=== PATIENT | female | born 1980 | race Caucasian/White ===

== ENCOUNTER 2019-11-14 07:18 | Emergency (ER) | payer BC, SELFPAY ==
[2019-11-14] VITALS (15 sets, daily range): BP systolic 103–118; BP diastolic 67–77; PULSE 45–81; RESP 8–18; TEMP 36.3–37; O2SAT 96–100
--- NOTE | 2019-11-14 07:37 | ED.GENADUL_ITS ---
Discharge Plan Disposition Patient Disposition: [facility] Condition: Serious Discharge Details Chief Complaint: FlankPain Clinical Impression: Pelvic mass Primary Care Provider: Briseida Mckenna ED Provider: Rochelle Faye Home Meds and New Rx's Prescriptions: No Action norgestimate-ethinyl estradiol [Ortho Tri-Cyclen (28)] 0.18/0.215/0.25 mg-35 mcg (28) tablet 1 tab PO DAILY Qty: 84 RF: 4 Discharge Data Discharge Date/Time-TO BE ENTERED AT DEPARTURE: 11/14/19 17:13 Medical Decision Making <Blake Hall MD - Last Filed: 11/14/19 07:41> 39 yo female who denies chronic medical problems, no smoking or drug use and has beer on weekends only comes in with cc of acute onset left lower back radiating to the groin that started acutely at 6am along with nausea. Has never had pain like this in the past and denies fevers, dysuria or hematuria. She has a soft nontedner abdomen on exam and no cva tenderness. Given the acute onset of her pain and location suspect kidney stone. Will obtain labs and also renal colic ct. Given reassuring abdominal exam doubt surgical pathology such as appendicitis or sbo among other pathology pt signed out to oncoming provider pending lab and imaging results Differential Diagnosis Differential Diagnosis: pyelo, kidney stone, diverticulitis <FLORY Burk - Last Filed: 11/15/19 16:08> I assumed care of this 39-year-old female at shift change at approximately 8 AM on 11-14-2019. She comes into the ER today reporting left lower quadrant and left flank pain that began abruptly around 6:00 this morning. Associate with nausea but no vomiting. Patient reports a family history of bladder cancer. She denies bad food exposure or recent illness-trauma. She was asymptomatic last night. On examination she appears uncomfortable. Head atraumatic, normocephalic. Moist mucous membranes. Heart, sinus bradycardia, rate in the 50s. Lungs clear to auscultation. Abdomen with diffuse discomfort along the left flank and left lower quadrant, associated with mild guarding but no rigidity or rebound. There does appear to be some fullness in the suprapubic region. Bowel sounds are equal throughout. Back unremarkable. Patient already received Toradol, antiemetic, fluids. Will give 2 mg IV morphine now. Laboratory does reveal a white blood cell count of 5.64 hemoglobin 12.2 hematocrit 36.8, platelet count 216. Electrolytes reveal a potassium of 3.4. Glucose 143, alk phosphatase 37. Urinalysis reveals greater than 1.030 specific gravity and 100 mg per DL urine protein. 3-5 white cells in the urine negative for red blood cells, negative for nitrates or leukoesterase. Many epithelial cells, likely contamination. Patient returned from CT, initially had good resolution of her discomfort with the morphine however now pain and nausea is returning. Additional 2 mg IV morphine and 4 [address]. CT initially done without contrast. I spoke with the radiologist. There appears to be a complex cystic lesion in the pelvis which appears to be separate from the uterus. It is midline and anterior from the bladder. Difficult to give additional information given the lack of contrast. Recommends both oral and IV contrast abdomen CT and pelvis. Discussed work-up laboratory values and CT imaging with patient. She is agreeable for CT imaging of abdomen pelvis with IV and oral contrast. She reports increased abdominal discomfort. Patient given 1 mg IV Dilaudid. Patient is tolerating the oral contrast, no vomiting. She does report return of her abdominal discomfort. Given additional 1 mg IV Dilaudid and will now give additional IV fluid. Heart rate remains in the 50s. Will add on coags as this mass very well be surgical in nature. Patient required another dose of IV Dilaudid. CT with oral and IV contrast reveals a 10 cm heterogeneous mass in the anterior pelvis. Differential considerations include ovarian lesion please correlate with patient's clinical history. Periportal edema in the liver, no evidence of hepatic mass. Small amount of abdominal pelvis ascites. Duplicated inferior vena cava. I discussed these findings with the patient and placed a call out to Dr. Rios who is on- call for [employer]. She did evaluate the patient here in the ER and requested ultrasound to further evaluate for flow to the ovary-mass. Patient went ultrasound and upon return reports that her pain has actually resolved completely. Ultrasound results reveal a 10 cm heterogeneous mass in the right adnexa. Consideration should include ovarian etiology such as neoplasm, endometrioma, infection, or torsion. Other pelvic masses cannot be excluded. Dr. Rios back down to the ER for evaluation. Please see her note. She discussed options with the patient. Can certainly have surgery here however if the mass is malignant would likely require a second surgery at [facility]. Given this the patient would elect to hopefully only have one surgery and is agreeable to transfer to [facility]. Dr. Rios is reaching out to the oncology [facility] [facility] team at [facility] to arrange transportation. Medical Records Medical records reviewed: Yes I reviewed the patient's medical records. <FLORY Whaley - Last Filed: 11/14/19 19:59> Care transition myself from Collins Rangel PA-C. Disposition is made with plan for patient be transferred to [facility] for surgical intervention. Patient has been evaluated by Dr. Chun. Please see initial notes are regarding patient's history, exam and evaluation. Plan is for patient to be transferred to [facility] pending accepting physician, for surgical intervention of pelvic mass. [facility] called back, attending physician spoke with Dr. Chun and Dr. Shanique Welch agrees to be accepting physician at [facility]. Patient transferred down via EMS ER to ER transfer. I discussed plan with the patient. She is resting comfortably prior to transfer. All of her questions and concerns were addressed. HPI <Blake Hall MD - Last Filed: 11/14/19 07:41> General Mode of arrival: ambulatory . Date/Time Provider Initiated Documentation: 11/14/19 07:21 . Limitations to Documentation: no limitations . Information obtained by: patient . History of Present Illness 39 year old F presents to the emergency department with the chief complaint of left flank pain, described as moderate, Patient started experiencing this hour(s) (1) and it has been constant. No relieving factors improve symptom(s), No exacerbating factors reported . Patient did receive the following treatments prior to arrival, none Related Data Home Medications Medication Instructions Recorded Confirmed norgestimate-ethinyl estradiol 1 tab PO DAILY #84 tab 09/09/19 11/14/19 Previous Rx's Medication Instructions Recorded norgestimate-ethinyl estradiol 1 tab PO DAILY #84 tab 09/09/19 Allergies Allergy/AdvReac Type Severity Reaction Status Date / Time No Known Allergies Allergy Unverified 11/14/19 07:47 General Stated Complaint: FlankPain OMARI: 3 Review of Systems <Blake Hall MD - Last Filed: 11/14/19 07:41> All systems reviewed & are unremarkable except as noted in HPI and below Constitutional Constitutional: Denies chills, Denies fever(s) and Denies weakness ENT Ears, Nose, Mouth, and Throat: Denies change in voice Cardiovascular Cardiovascular: Denies chest pain and Denies dyspnea Respiratory Respiratory: Denies cough and Denies dyspnea Genitourinary Genitourinary: Denies dysuria Musculoskeletal Musculoskeletal: Denies joint swelling Neurologic Neurologic: Denies weakness Psychiatric Psychiatric: Denies depression PFSH <Blake Hall MD - Last Filed: 11/14/19 07:41> Medical History (Updated 11/14/19 @ 15:03 by Teresa Rios DO) Hyperthyroidism during (Resolved ~2013) Migraine headache with aura (Resolved) Oral contraceptive pill surveillance (Inactive) Pelvic pain (Acute) Surgical History S/P right knee arthroscopy (Inactive 08/29/16) Right knee arthroscopic medial chondroplasty with resection of lateral plica with Dr. Omer Family History Mother No problems noted. Father Essential hypertension Hyperlipidemia Prostate cancer Sister Hypothyroidism Sister Hypothyroidism Son No problems noted. Daughter No problems noted. Maternal Grandfather , at 79 Heart disease Maternal Grandmother , at 89 Alcohol abuse Breast cancer Paternal Grandfather , at 94 Skin cancer Paternal Grandmother , at 78 Bladder cancer Essential hypertension Stroke Social History Smoking/Tobacco Use Status: Never Second Hand Exposure: No Alcohol Intake: current Alcohol Intake frequency: a few times a week Alcohol type: beer Drug use: Never Substance use type: does not use Caregiver/Support person: No Household members: spouse and children Housing: house Communication Needs: None Do you need help understanding health information?: Never Pets and animals: No Sexually active: Yes Do you think of yourself as: straight/heterosexual Current gender identity: female What is your relationship status?: How often do you talk on the phone with friends or family?: twice per week How often do you get together with friends or relatives?: twice per week How often do you attend alevism or scientologist services?: 1-3 times per year Do you belong to any clubs or organized social groups?: yes Panel score (0-1 are the most socially isolated patients): 3 What type of physical activity do you participate in: other Details: basketball, skiing and running Duration: 45-60 minutes/day Frequency: 5-6 times per week Laine/Mormonism: None Special laine needs: No Seatbelt use: always Helmet use: Yes Helmet use: always Drive intox or ride w/intox mechanic driver: No Do you feel safe at home: Yes Do you feel safe in your relationship?: Yes History History 2 Para 2 Hx # Term Pregnancies Multiple births Hx # Pregnancies Ectopic pregnancies AB induced Hx Number of Living Children 2 AB spontaneous Exam <Blake Hall MD - Last Filed: 11/14/19 07:41> Const General: no acute distress Orientation: alert HENMT Head: normal to inspection Ears: external ears normal General nose exam: external nose normal Mouth: moist mucous membranes Eyes General: appearance normal, both eyes and all related structures Neck Neck: normal visual inspection Resp Effort & Inspection: normal respiratory effort and able to speak in complete sentences Cardio Rate: regular rate GI Palpation: soft Skin General skin exam: no rashes or lesions noted Neuro General: patient alert and patient oriented x3 Extrem General: normal to inspection Psych Mental Status: mental status grossly normal Course <Blake Hall MD - Last Filed: 11/14/19 07:41> Vital Signs Vital signs: Vital Signs Temperature 36.3 C L 11/14/19 07:26 Pulse 53 L 11/14/19 07:26 Blood Pressure 104/67 11/14/19 07:26 Pulse Oximetry 96 11/14/19 07:26 Temperature 36.3 C L 11/14/19 07:26 Temperature Source Temporal Artery Scan 11/14/19 07:26 Pulse 53 L 11/14/19 07:26 Blood Pressure 104/67 11/14/19 07:26 Blood Pressure Position Sitting 11/14/19 07:26 Pulse Oximetry 96 11/14/19 07:26 Oxygen Delivery Method Room Air 11/14/19 07:26 Oxygen Flow Rate 0 11/14/19 07:26 Pain Level 7 11/14/19 07:26 Lab/Test Results Lab/Test Results: POC- Test(urine) Negative Sign Out <Blake Hall MD - Last Filed: 11/14/19 07:41> Sign Out Data: Sign Out Comment: left flank pain, follow up labs and imaging results Last updated by Blake Hall MD at 11/14/19 07:42 Sign Out Comment: Patient with pelvic mass via CT imaging and ultrasound. Dr. Rios has consulted, please see her note. Plan is to transfer to [facility] oncology [employer] team however they have not called back. Pending their consultation and acceptance of transfer of care. Last updated by River Rangel PA at 11/14/19 15:56
[2019-11-14] MEDS: Ketorolac 15 MG/ML VIAL IVP (07:41)
[2019-11-14] MEDS: Ondansetron 4 MG/2 ML VIAL IVP ×3 (07:41→15:35)
[2019-11-14] MEDS: Normal Saline 1,000 ML 1000 ML IV ×2 (07:42→10:47)
[2019-11-14] MEDS: Normal Saline Flush 10 ML SYR IVP ×6 (07:43→12:30)
[2019-11-14 07:48] LABS: Bilirubin Negative (Negative); Blood Negative (Negative); Clarity Clear (Clear); Glucose Negative (Negative); Ketones Negative (Negative); Leukocyte Esterase Negative (Negative); Nitrite Negative (Negative); Specific Gravity >= 1.030 (1.005-1.025); Urobilinogen 0.2 EU/dL (Up TO 0.2); pH 5.5 (5-8)
[2019-11-14 07:55] LABS: Abs Immature Grans 0.01 k/cumm (0.0-0.09); Absolute Basophil Count 0.02 k/cumm (0.0-0.2); Absolute Eosinophil Count 0.13 k/cumm (0.0-0.7); Absolute Lymphocyte Count 1.93 k/cumm (1.2-3.4); Absolute Neutrophil Count 3.25 k/cumm (1.2-6.7); Basophils % 0.4; Eosinophils % 2.3; HCT 36.8 % (36.0-46.0); HGB 12.2 g/dL (12.0-15.5); Immature Grans % 0.2 %; Lymphocytes % 34.2; Mean Corp. HGB Concentration 33.2 g/dL (32.0-36.0); Mean Corpuscular Hemoglobin 31.9 pg (27.0-33.0); Mean Corpuscular Volume 96.3 fL (80-95); Mean Platelet Volume 10.3 fL (8.0-11.0); Monocytes % 5.3; Neutrophils % 57.6; Platelet Count 216 x1000/uL (130-400); RBC 3.82 m/cumm (4.00-5.20); RBC Distribution Width 12.6 % (11.7-14.6); White Blood Cell Count 5.64 k/cumm (4.4-10.8)
[2019-11-14 08:00] LABS: ALT 26 U/L (14-59); AST 26 U/L (15-37); Albumin 3.7 g/dL (3.4-5.0); Alkaline Phosphatase 37 U/L (46-116); Anion Gap 10.2 mmol/L (3-11); BUN 18 mg/dL (7-18); Bilirubin, Total 0.4 mg/dL (0.2-1.0); CO2 24.8 mmol/L (21.0-32.0); CREATININE 0.99 mg/dL (0.55-1.02); Calcium 8.6 mg/dL (8.5-10.1); Chloride 101 mmol/L (98-107); Glucose 141 mg/dL (74-106); Lipase 130 U/L (73-393); Potassium 3.4 mmol/L (3.5-5.1); Sodium 136 mmol/L (136-145); Total Protein 7.2 g/dL (6.4-8.2)
[2019-11-14 08:02] LABS: RBC Negative HPF (0-2)
--- NOTE | 2019-11-14 08:02 | DI.CT_ITS ---
EXAM: CT RENAL COLIC WO CLINICAL HISTORY: left flank pain. TECHNIQUE: Imaging Protocol: Axial computed tomography images with coronal and sagittal reformatted images were created and reviewed. COMPARISON: No exams were available for comparison FINDINGS: ABDOMEN: Lung Bases: Normal where visualized. Liver: Normal density. No measurable mass. Gallbladder and biliary tract: No radiodense calculus or biliary ductal dilation. Pancreas: Normal density, no abnormal calcifications or inflammatory process. Spleen: Normal. Kidneys: Normal size, contour and axis. No radiodense stones or obstructive uropathy. No masses seen. Adrenal glands: No masses seen. Lymph nodes: Within normal limits. Abdominal Aorta: Abdominal portion non-dilated. 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 PELVIS: Bladder: There is an 11 x 9.5 cm complex cystic lesion in the anterior pelvis. It appears anterior t o the uterus. Bowel: No obstruction or bowel wall thickening. No definite evidence of an acute appendicitis. Peritoneal cavity: Trace amount of free fluid in the cul-de-sac. Reproductive organs: Uterus appears unremarkable. Bones: Within normal limits. Soft Tissues: Within normal limits. IMPRESSION: 11 x 9.5 cm complex cystic lesion in the anterior pelvis. Differential considerations include bladde r mass or hemorrhage pelvic mass including an ovarian neoplasm, endometrioma or possible ureter in ma ss such as a fibroid.A CT scan of the abdomen and pelvis with oral and intravenous contrast is recomm ended. Findings were discussed with the emergency department. No evidence of nephrolithiasis or hydronephrosis. RADIATION DOSE DELIVERED: Total DLP DATA REPOSITORY: All CT scans at this facility are submitted to the National Radiology Data Registry (NRDR) Dose Index Registry (DIR) with the [employer] (ACR). RADIATION OPTIMIZATION: All CT scans at this facility use at least one of these dose optimization te chniques: automated exposure control; mA and/or kV adjustment per patient size (includes targeted exa ms where dose is matched to clinical indication); or iterative reconstruction.
[2019-11-14 08:03] LABS: Bacteria Few HPF (Negative); Crystals Negative HPF (Negative); Epithelial Cells Many HPF (Negative); Mucus Moderate (Negative)
[2019-11-14 08:04] LABS: C & S Indicated? No/Sq. Contamination
[2019-11-14] MEDS: Normal Saline 50 ML 200 ML (09:56)
--- NOTE | 2019-11-14 10:00 | DI.CT_ITS ---
EXAM: CT ABDOMEN PELVIS W CLINICAL HISTORY: Cystic structure on CT without contrast. TECHNIQUE: Imaging Protocol: Axial computed tomography images with coronal and sagittal reformatted images were created and reviewed CONTRAST MATERIAL: Intravenous: Omnipaque 350 Contrast volume:100 mL Oral: Yes COMPARISON: CT CT RENAL COLIC WO from 11/14/2019 FINDINGS: ABDOMEN: Lung Bases: Dependent atelectasis. Liver: Periportal edema present. No measurable mass. Portal, Superior Mesenteric, and Splenic Veins: Unremarkable. Gallbladder and Biliary Tract: No radiodense calculus or dilation. Pancreas: Normal density, no abnormal calcifications or inflammatory process. Spleen: Normal. Adrenals: No masses seen. Kidneys: Normal size, contour and axis. No nephrolithiasis. No masses seen. Mild dilatation of the ri ght renal collecting system is noted. This may be secondary to compression by the pelvic mass. Abdominal Aorta: Abdominal portion non-dilated. 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 Bowel: No obstruction or bowel wall thickening. No evidence of an acute appendicitis. Peritoneal Cavity: There is a small amount of pelvic ascites. No pneumoperitoneum is present. Lymph Nodes: Within normal limits. Bones: No acute abnormality. Soft Tissues: Unremarkable. PELVIS: Bladder: Grossly unremarkable. The urinary bladder is compressed by the pelvic mass. Reproductive Organs: The uterus is grossly unremarkable. There is again seen a 10 cm heterogeneous ma ss in the anterior pelvis it lies anterior to the uterus and superior to the urinary bladder. Lymph Nodes: Within normal limits. Bones: Within normal limits. IMPRESSION: 1. 10 cm heterogeneous mass in the anterior pelvis. Differential considerations include ovarian lesio n such as torsion neoplasm or possible endometrioma. Please correlate with patient's clinical history . 2. Periportal edema in the liver. No evidence of a hepatic mass. 3. Small amount of abdominal pelvic ascites. 4. Duplicated inferior vena cava. 5. The findings were discussed with the emergency department on the date of the examination. RADIATION DOSE DELIVERED: Total DLP DATA REPOSITORY: All CT scans at this facility are submitted to the National Radiology Data Registry (NRDR) Dose Index Registry (DIR) with the [employer] (ACR). RADIATION OPTIMIZATION: All CT scans at this facility use at least one of these dose optimization te chniques: automated exposure control; mA and/or kV adjustment per patient size (includes targeted exa ms where dose is matched to clinical indication); or iterative reconstruction.
[2019-11-14] MEDS: HYDROmorphone 2 MG/ML VIAL 1 MG IVP ×3 (10:09→12:30)
[2019-11-14 11:04] LABS: PTT Activated 18.9 sec (21.0-31.4); Prothrombin Time 10.4 sec (9.3-11.0)
[2019-11-14] MEDS: Omnipaque 350 MG/ML 100 ML BTL IV (11:34)
[2019-11-14] MEDS: Normal Saline - Diluent 50 ML VIAL IV (11:37)
--- NOTE | 2019-11-14 12:42 | DI.US_ITS ---
EXAM: US PELVIS TRANSVAGINAL CLINICAL HISTORY: mass on CT, want to evaluate blood flow to ovary. TECHNIQUE: Transabdominal and transvaginal pelvic ultrasound was performed using standard protocol. COMPARISON: CT CT RENAL COLIC WO from 11/14/[address] ABDOMEN PELVIS W from 11/14/2019 FINDINGS: KIDNEYS: Kidneys are symmetric in size. No evidence of renal calculi. No evidence of hydronephrosis. No renal mass or cyst identified. UTERUS: Position: Anteverted. Size: 9.1 x 4.7 x 6.3 cm Endometrium: 0.8 cm. Normal for patient's menstrual status. Myometrium: Unremarkable. Cervix: Unremarkable. OVARIES: Right: There is a 10 cm mass in the right adnexal region. No definite internal blood flow seen sonog raphically. A distinct separate ovary is not visualized. This corresponds to the finding on the CT scans. Left: 3.1 x 1.4 x 1.3 cm Cyst or mass: Small follicular cysts. DOPPLER: Color: Blood flow is seen to the left ovary. No hyperemia. Duplex: Normal left ovarian arterial waveform visualized. CUL-DE-SAC: Free fluid: Small amount of free pelvic fluid. Other: None. IMPRESSION: 1. Normal sonographic appearance of the kidneys. 2. Normal-appearing uterus with endometrial stripe within normal limits. 3. Normal appearing left ovary. 4. 10 cm heterogeneous mass in the right adnexa. Consideration should include ovarian etiology such is neoplasm, endometrioma, infection, or torsion. Other pelvic masses cannot be excluded. 5. The findings were discussed with the patient's primary care team on the date of the examination. DATA REPOSITORY:
--- NOTE | 2019-11-14 14:55 | W.GYNCONSULT ---
Date of service: 11/14/19 Time of Service: 14:55 Assessment and Plan Assessment and plan (1) Pelvic mass: Status: Acute Assessment and plan: Due to the size, comp laxity, and acute pain associated with this pelvic mass, options were discussed with the patient which included surgical intervention here at [facility] with operative laparoscopy versus laparotomy. Alternative option would be consultation and transfer to [facility] for gynecologic oncology services. Due to the fact that the etiology of her pelvic mass is somewhat unclear with torsion as a possibility versus underlying ovarian neoplasm decision was made for transfer of care to [facility] for gynecologic oncology services if needed. The risks and benefits of surgery including injury to surrounding organs bowel bladder blood vessels risk of anesthesia potential postoperative complications including thrombotic events were all explained to the patient. If surgery was undertaken here, and underlying malignancy noted with pathology, second surgical procedure would be necessary. Patient wishes to avoid this at all cost, and could potentially benefit from a robotic assisted procedure. (2) Pelvic pain: Status: Acute History of Present Illness History of Present Illness Chief Complaint: Good onset left lower quadrant pain Consults Consult date: 11/14/19 Review of Systems Narrative: Patient was seen in the emergency department this morning with acute onset of left lower quadrant pain. She states that it was described as cramping, labor-like pains which radiated from her abdomen to her lower back. She has never had pain to this extent in the past. She denies nausea or vomiting, fever or chills. She was concerned that she was passing a kidney stone, so was brought to the emergency department by her . Constitutional Constitutional: Denies chills, Denies fever(s), Denies increased appetite, Denies weakness and Denies weight loss Cardiovascular Cardiovascular: Reports system reviewed and no additional complaints, except as documented Respiratory Respiratory: Reports system reviewed and no additional complaints, except as documented Gastrointestinal Gastrointestinal: Reports abdominal pain, Reports cramping, Reports early satiety, Denies diarrhea, Denies loose stools and Denies nausea Genitourinary Genitourinary: Denies abnormal menses and Denies metrorrhagia Neurologic Neurologic: Reports system reviewed and no additional complaints, except as documented and Denies weakness Psychiatric Psychiatric: Reports system reviewed and no additional complaints, except as documented [facility] Medical History Hyperthyroidism during (Resolved ~2013) Migraine headache with aura (Resolved) Oral contraceptive pill surveillance (Inactive) Surgical History S/P right knee arthroscopy (Inactive 08/29/16) Right knee arthroscopic medial chondroplasty with resection of lateral plica with Dr. Omer Family History Mother No problems noted. Father Essential hypertension Hyperlipidemia Prostate cancer Sister Hypothyroidism Sister Hypothyroidism Son No problems noted. Daughter No problems noted. Maternal Grandfather , at 79 Heart disease Maternal Grandmother , at 89 Alcohol abuse Breast cancer Paternal Grandfather , at 94 Skin cancer Paternal Grandmother , at 78 Bladder cancer Essential hypertension Stroke Social History Smoking/Tobacco Use Status: Never Second Hand Exposure: No Alcohol Intake: current Alcohol Intake frequency: a few times a week Alcohol type: beer Drug use: Never Substance use type: does not use Caregiver/Support person: No Household members: spouse and children Housing: house Communication Needs: None Do you need help understanding health information?: Never Pets and animals: No Sexually active: Yes Do you think of yourself as: straight/heterosexual Current gender identity: female What is your relationship status?: How often do you talk on the phone with friends or family?: twice per week How often do you get together with friends or relatives?: twice per week How often do you attend yazdanism or christianity services?: 1-3 times per year Do you belong to any clubs or organized social groups?: yes Panel score (0-1 are the most socially isolated patients): 3 What type of physical activity do you participate in: other Details: basketball, skiing and running Duration: 45-60 minutes/day Frequency: 5-6 times per week Laine/Faith: None Special laine needs: No Seatbelt use: always Helmet use: Yes Helmet use: always 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 She had undergone imaging studies including CT scan of the abdomen and pelvis which revealed a complex pelvic mass measuring approximately 10 x 13 cm. Subsequent imaging with pelvic ultrasound was performed to evaluate the possibility of ovarian torsion. Left ovary was identified with good flow and normal size. Right ovary appeared cystic however associated was a large 10 to 13 cm complex ovarian mass. Flow was minimal. There was noted to be a small amount of free pelvic fluid. 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 After multiple doses of pain medication her pain did somewhat improve. On examination she appears alert and cooperative and in a moderate amount of distress due to pelvic pain. Const General: cooperative, healthy appearing, acute distress and well hydrated Nutritional Appearance: well nourished and thin Orientation: alert and oriented x3 HENMT Head: normal to inspection Eyes General: appearance normal, both eyes and all related structures Neck Neck: normal visual inspection Chest Chest: normal inspection of the chest Resp Effort & Inspection: normal respiratory effort and no stridor Auscultation: clear to auscultation bilaterally, no rales, no rhonchi and no wheezes Cardio Jugular venous pressure: no JVD Palpation: normal PMI Rate: regular rate Rhythm: regular rhythm Heart Sounds: S1 normal, S2 normal and no murmurs GI Inspection: normal to inspection Palpation: guarding, no pulsatile masses and tender Auscultation: normal bowel sounds Other: Mass noted, filling the pelvis extending to the umbilicus Skin General skin exam: no rashes or lesions noted Neuro General: patient alert, patient awake and patient oriented x3 Psych Appearance: grossly normal Mental Status: mental status grossly normal Speech and Movement: speech and movement normal Results Last Vital Signs Temp 97.3 F L 11/14/19 07:26 Pulse 50 L 11/14/19 11:31 Resp 13 11/14/19 11:40 BP 116/77 11/14/19 11:31 Pulse Ox 100 11/14/19 11:40 Labs Result diagrams: 11/14/19 07:40 11/14/19 07:40 Labs: Laboratory Results - last 24 hr 11/14/19 11/14/19 11/14/19 07:26 07:40 07:40 WBC 5.64 RBC 3.82 L Hgb 12.2 Hct 36.8 MCV 96.3 H MCH 31.9 MCHC 33.2 RDW 12.6 Plt Count 216 MPV 10.3 Immature Gran % 0.2 Neutrophils % 57.6 Lymphocytes % 34.2 Monocytes % 5.3 Eosinophils % 2.3 Basophils % 0.4 Absolute Neutrophils 3.25 Absolute Lymphocytes 1.93 Absolute Monocytes 0.30 Absolute Eosinophils 0.13 Absolute Basophils 0.02 PT INR APTT Sodium 136 Potassium 3.4 L Chloride 101 Carbon Dioxide 24.8 Anion Gap 10.2 BUN 18 Creatinine 0.99 Estimated GFR/1.73 m2 >= 60.00 Glucose 141 H Calcium 8.6 Total Bilirubin 0.4 AST 26 ALT 26 Alkaline Phosphatase 37 L Total Protein 7.2 Albumin 3.7 Lipase 130 Urine Color Yellow Urine Clarity Clear Urine pH 5.5 Ur Specific [place] >= 1.030 H Urine Protein 100 H Urine Ketones Negative Urine Blood Negative Urine Nitrite Negative Urine Bilirubin Negative Urine Urobilinogen 0.2 Ur Leukocyte Esterase Negative Urine RBC Negative Urine WBC 3-5 Ur Epithelial Cells Many Urine Crystals Negative Urine Bacteria Few Urine Mucus Moderate Ur Culture Indicated? No/sq. contamination Urine Glucose Negative 11/14/19 07:40 WBC RBC Hgb Hct MCV MCH MCHC RDW Plt Count MPV Immature Gran % Neutrophils % Lymphocytes % Monocytes % Eosinophils % Basophils % Absolute Neutrophils Absolute Lymphocytes Absolute Monocytes Absolute Eosinophils Absolute Basophils PT 10.4 INR 1.0 APTT 18.9 L Sodium Potassium Chloride Carbon Dioxide Anion Gap BUN Creatinine Estimated GFR/1.73 m2 Glucose Calcium Total Bilirubin AST ALT Alkaline Phosphatase Total Protein Albumin Lipase Urine Color Urine Clarity Urine pH Ur Specific [place] Urine Protein Urine Ketones Urine Blood Urine Nitrite Urine Bilirubin Urine Urobilinogen Ur Leukocyte Esterase Urine RBC Urine WBC Ur Epithelial Cells Urine Crystals Urine Bacteria Urine Mucus Ur Culture Indicated? Urine Glucose
== END 2019-11-14 17:13 | disposition short-term general hospital (02) ==
PROVIDERS: Emergency Medicine; Physician Assistant; Emergency Provider Physician Assistant; PCP Nurse Practitioner Family
DX: R19.04 Left lower quadrant abdominal swelling, mass and lump (principal); R11.0 Nausea; R18.8 Other ascites
CPT/HCPCS: 36415; 80053; 83690; 96361; 96374; 96375; 96376; 99253; 99285; 74176; 74177; 76830; 76856; 81003; 81015; 85025; 85610; 85730; J1885; J2405; J3490

== ENCOUNTER 2020-07-12 03:04 | Outpatient (CLI) | payer BC, SELFPAY ==
[2020-07-12 15:54] LABS: BUN 13 mg/dL (7-18); CREATININE 0.94 mg/dL (0.55-1.02); Calcium 9.4 mg/dL (8.5-10.1); Calculated LDL 117 mg/dL (<100); Chloride 99 mmol/L (98-107); Cholesterol 218 mg/dL (<200); Glucose 116 mg/dL (74-106); HDL Cholesterol 92 mg/dL (40-60); Potassium 4.5 mmol/L (3.5-5.1); Sodium 134 mmol/L (136-145); TSH 3.58 uIU/mL (0.36-3.74); Triglyceride 47 mg/dL (<150)
[2020-07-12 16:16] LABS: FREE T4 0.91 ng/dL (0.76-1.46)
== END 2020-07-12 03:24 ==
PROVIDERS: PCP Nurse Practitioner Family; Visit Provider Nurse Practitioner Family
DX: Z00.00 Encounter for general adult medical examination without abnormal findings (principal); Z13.220 Encounter for screening for lipoid disorders; Z86.39 Personal history of other endocrine, nutritional and metabolic disease
CPT/HCPCS: 36415; 80048; 80061; 84439; 84443

== ENCOUNTER 2020-12-11 00:52 | Outpatient (CLI) | payer BC, SELFPAY ==
--- NOTE | 2020-12-11 13:55 | DI.RAD_ITS ---
Exam(s) XR KNEE RT 3V AP,LAT,HARPAL EXAM: XR KNEE RT 3V AP,LAT,HARPAL CLINICAL HISTORY: right posterior knee pain,M25.561. TECHNIQUE: 2D digital imaging was performed. COMPARISON: No exams were available for comparison FINDINGS: BONES: No acute fracture is present. No bony destructive lesion is seen. JOINTS: The knee is normally aligned. There is a small joint effusion. SOFT TISSUE: Normal. IMPRESSION: Small joint effusion. DATA REPOSITORY: RADIATION DOSE DELIVERED:
== END 2020-12-11 01:12 ==
PROVIDERS: PCP Nurse Practitioner Family; Visit Provider Nurse Practitioner Family
DX: M25.461 Effusion, right knee (principal)
CPT/HCPCS: 73562

== ENCOUNTER 2021-10-14 01:22 | Outpatient (CLI) | payer BC, SELFPAY ==
--- NOTE | 2021-10-14 07:00 | DI.US_ITS ---
Exam(s) US PELVIS TRANSVAGINAL EXAM: US PELVIS TRANSVAGINAL CLINICAL HISTORY: r/o uterine fibroid,H/O UTERINE FIBROID,Z86.018 TECHNIQUE: Transabdominal and transvaginal imaging was performed using standard protocol. COMPARISON: CT CT ABDOMEN PELVIS W from 11/14/[address] RENAL COLIC WO from 11/14/2019 US US PELVIS TRANSVAGINAL from 11/14/2019 FINDINGS: KIDNEYS: Kidneys are symmetric in size. No evidence of renal calculi. No evidence of hydronephrosis. No renal mass or cyst identified. UTERUS: Anteverted. 10.9 x 5.3 x 5.9 cm Endometrium: 9 millimeters. Small amount of fluid or blood, consistent with menstruating status. Myometrium: Unremarkable. No fibroid seen. Cervix: Unremarkable. OVARIES: Right: Cyst or mass: None. Left: Cyst or mass: None. DOPPLER: Color: Symmetric and uniform flow to both ovaries. No hyperemia. Duplex: Normal ovarian arterial waveforms visualized. CUL-DE-SAC: Free fluid: Small amount. IMPRESSION: 1. Normal-appearing uterus with endometrial stripe within normal limits. 2. Unremarkable bilateral ovaries. DATA REPOSITORY:
--- NOTE | 2021-10-14 07:00 | DI.MAMMO_ITS ---
Exam(s) MAMMO SCREENING EXAM: MAMMO SCREENING CLINICAL HISTORY: screening,Z12.39 TECHNIQUE: Mammograms were interpreted according to the usual protocol including computer analysis w [employer] CAD system, tomosynthesis and C-view imaging. COMPARISON: None. Baseline examination. FINDINGS: The breasts are composed of heterogeneously dense fibroglandular densities, Breast Density category C . No suspicious masses or suspicious microcalcifications are seen. No skin thickening or abnormal axillary lymph nodes are seen. IMPRESSION: BI-RADS Category 1, Negative mammogram. Yearly screening mammography is recommended. Breast Density Category C, heterogeneously Dense. The mammogram demonstrates the patient's breast tissue is dense. Dense breast tissue is very common a nd is not abnormal but dense breast tissue can make it harder to find cancer on a mammogram. Also, de nse breast tissue may increase breast cancer risk. This information about the result of the mammogram report was provided to the patient to raise their awareness. Use this report when you speak with the patient about their risks for breast cancer, which includes their family history. At that time, you may recommend additional screening tests (Ultrasound or MRI) as they might be useful based on their r isk. A negative radiographic report should not delay biopsy if a dominant or clinically suspicious mass is present. Up to ten percent of cancers are not identified on mammography. A negative report may reinforce clinical impression. Adenosis and dense breasts may obscure an underlying neoplasm. False positive reports average 6 to 10%.
== END 2021-10-14 01:42 ==
PROVIDERS: PCP Nurse Practitioner Family; Visit Provider Nurse Practitioner Family
DX: Z12.31 Encounter for screening mammogram for malignant neoplasm of breast (principal); Z86.018 Personal history of other benign neoplasm; Z87.42 Personal history of other diseases of the female genital tract
CPT/HCPCS: 77063; 77067; 76830; 76856

== ENCOUNTER 2022-09-01 15:39 | Outpatient (REF) | payer BC, SELFPAY ==
--- NOTE | 2022-09-01 14:00 | PAPFT_PTH ---
PATIENT: Maribel Latham LOC: [facility] U#:[id number] AGE/SX: 42/F ROOM: RE09/01/[address]: ZEV Jaimes : 1980 BED: DIS: 09/01/2022 SPEC #: [id number] RECD: 09/02/22 12:57 STATUS: EDMAR BUCIO #: [id number] MARTHA: 09/01/22 14:[address]: Briseida Mckenna DEPT: [facility] Cytology RECD BY: Ciara Wolf Tissues: 1 - CX/ENDOCX FOR PAP SMEARS Procedures: PAP THIN PREP/UVM Screening HPV DNA PROBE Comments: [id number]
== END 2022-09-01 15:40 | disposition home or self-care (01) ==
LOC: LBN 15:39
PROVIDERS: PCP Nurse Practitioner Family; Visit Provider Nurse Practitioner Family
DX: Z12.4 Encounter for screening for malignant neoplasm of cervix (principal)
CPT/HCPCS: 88142; 87624

== ENCOUNTER 2022-10-06 14:08 | Outpatient (CLI) | payer BC, SELFPAY ==
--- NOTE | 2022-10-06 13:15 | DI.RAD_ITS ---
Exam(s) XR KNEE LT 4V AP,LAT,HARPAL,PAT EXAM: XR KNEE LT 4V AP,LAT,HARPAL,PAT CLINICAL HISTORY: left knee pain, lateral. TECHNIQUE: 2D digital imaging was performed of the left knee. Four images were obtained. Merchant, AP, lateral and PA tunnel views were obtained. COMPARISON: None. FINDINGS: BONES: No acute fracture is present. No bony destructive lesion is seen. JOINTS: The knee is normally aligned. No joint effusion is seen. SOFT TISSUE: Normal. IMPRESSION: Normal radiographs of the left knee. DATA REPOSITORY: RADIATION DOSE DELIVERED:
== END 2022-10-06 14:09 | disposition home or self-care (01) ==
LOC: DIORS 14:08
PROVIDERS: PCP Nurse Practitioner Family; Referring Provider Nurse Practitioner Family; Visit Provider Student in an Organized Health Care Education/Training Program
DX: M25.562 Pain in left knee (principal)
CPT/HCPCS: 73564

== ENCOUNTER 2022-10-20 00:52 | Outpatient (CLI) | payer BC, SELFPAY ==
--- NOTE | 2022-10-20 07:15 | DI.MAMMO_ITS ---
Exam(s) MAMMO SCREENING EXAM: MAMMO SCREENING CLINICAL HISTORY: screening,z12.39 TECHNIQUE: Bilateral full field digital CC and MLO mammographic images were obtained with 3D tomosyn thesis and utilizing computer aided detection (CAD). COMPARISON: Available for comparison. FINDINGS: Masses/Architectural Distortion: None seen. Microcalcifications: No suspicious pleomorphic-type are seen. Skin Thickening/Nipple Retraction: None. IMPRESSION: 1. No significant interval change with no specific features of malignancy noted. 2. Unless there is more urgent need, screening mammography is recommended, as per [employer] guidelines. BI-RADS Category 1 - Negative Breast Density - Category C - Heterogeneously dense Breast density category C or D implies that the patient has dense breast tissue. Dense breast tissue is very common and is not abnormal but dense breast tissue can make it harder to find cancer on a ma mmogram. Also, dense breast tissue may increase their breast cancer risk. This information about the result of the mammogram report was provided to the patient to raise their awareness. Use this report when you speak with the patient about their risks for breast cancer, which includes their family hist ory. At that time, you may recommend for more screening tests (Ultrasound or MRI) as they might be us eful based on their risk. A negative radiographic report should not delay biopsy if a dominant or clinically suspicious mass is present. Up to ten percent of cancers are not identified on mammography. A negative report may reinforce clinical impression. Adenosis and dense breasts may obscure an underlying neoplasm. False positive reports average 6 to 10%. Patient will receive a letter notifying them of these results.
== END 2022-10-20 01:12 ==
PROVIDERS: PCP Nurse Practitioner Family; Visit Provider Nurse Practitioner Family
DX: Z12.31 Encounter for screening mammogram for malignant neoplasm of breast (principal)
CPT/HCPCS: 77063; 77067

== ENCOUNTER 2022-10-29 01:50 | Outpatient (CLI) | payer BC, SELFPAY ==
--- NOTE | 2022-10-29 07:15 | DI.MRI_ITS ---
Exam(s) MR LOWER JOINT LT WO EXAM: MR LOWER JOINT LT WO CLINICAL HISTORY: PAIN,internal derangement lt knee, m23.92. TECHNIQUE: Multiplanar multisequence MRI was performed. COMPARISON: CR XR KNEE LT 4V AP,LAT,HARPAL,PAT from 10/06/2022 FINDINGS: BONES: There is no fracture or contusion pattern. JOINTS: Articular cartilage is unremarkable. There is a small joint effusion. TENDONS: Extensor mechanism: Unremarkable. Medial retinaculum: Unremarkable. Lateral retinaculum: Unremarkable. Popliteus: Unremarkable. MUSCLES: Unremarkable. MENISCI: There is hyperintense signal seen at the root of the medial meniscus suspicious for tear. T here does appear to be hypointense material in the anterior medial aspect of the joint which may repr esent displaced meniscal tissue. The lateral meniscus is unremarkable. SOFT TISSUES: There is a very tiny popliteal cyst. LIGAMENTS: Anterior Cruciate: Unremarkable. Posterior Cruciate: Unremarkable. Medial Collateral:Unremarkable. Lateral Collateral: Unremarkable. OTHER: IMPRESSION: 1. Findings of a tear of the root of the medial meniscus with a question of displaced material anteri madhu. 2. No evidence of a ligament tear. 3. Small joint effusion. DATA REPOSITORY:
== END 2022-10-29 02:10 ==
LOC: DI 01:50
PROVIDERS: PCP Nurse Practitioner Family; Visit Provider Student in an Organized Health Care Education/Training Program
DX: M23.92 Unspecified internal derangement of left knee (principal)
CPT/HCPCS: 73721

== ENCOUNTER 2022-12-18 10:57 | Day surgery (SDC) | payer BC, SELFPAY ==
[2022-12-18] VITALS (8 sets, daily range): BP systolic 100–124; BP diastolic 57–89; PULSE 57–87; RESP 11–18; TEMP 36–36.7; O2SAT 99–100; BMI 22.4
--- NOTE | 2022-12-18 07:36 | ROE_ITS ---
Date of service: 12/18/22 Time of Service: 12:00 Operative Note Operative Note DATE OF PROCEDURE: 12/18/22 PRE-OP DIAGNOSIS: Left knee 1. Medial meniscus root tear POST-OP DIAGNOSIS: same PROCEDURE: Left knee 1. Medial meniscus root repair, CPT #90364 2. Medial femoral condyle abrasion arthroplasty as bone marrow stimulation, CPT #76478 SURGEON: William William FRONT OF HOUSE MANAGER: River Rangel ANESTHESIA TYPE: Local By Surgeon and General LMA/ETT Refer to Anesthesia Record PATHOLOGY: none sent TOURNIQUET TIME: 0 Patient was transported to: PACU Patient's condition: stable Implants: Arthrex 4.75 mm bio composite SwiveLock Indications: Please see complete medical record for details. Findings: Exam under anesthesia: Full range of motion, stable Arthroscopic findings: Complete, radial posterior horn root type medial meniscus tear. Mild medial femoral condyle chondromalacia. Mild intercondylar synovitis. Intact lateral compartment. Intact patellofemoral compartment Procedure Description: In the operating room, general anesthesia was induced. The patient was positioned supine on the operating room table. All bony prominences were well- padded. Preoperative antibiotics were administered. The knee was prepped and draped in the usual sterile fashion. The correct patient, procedure, and side of the procedure were all verified prior to incision. Exam under anesthesia was performed. 10 cc of 0.25% bupivacaine containing epinephrine was infiltrated about the planned anteromedial and anterolateral knee arthroscopy portals. The portals were established and a complete diagnostic arthroscopy was performed with relevant findings detailed above. The mechanical shaver was used to remove some synovitis in the intercondylar and anterior areas likely related to the subacute meniscus tear. The meniscus was probed and inspected. The posterior horn was intact. There was a complete root tear as expected with radial propagation at the posterior horn adjacent to the root. The medial compartment was quite narrow and diminutive relative to the root repair instruments. Using a single skin puncture an 18-gauge needle was used to piecrust the MCL. There was slight increase in a workability of the medial compartment, but the root guide and especially knee scorpion were unlikely to have appropriate fit to the posterior horn working in the valgus stress position. Instead, given the prominence of the medial tibial spine and narrowing of the adjacent posterior aspect of the medial femoral condyle, decision was made to proceed with a small reverse notchplasty. The mechanical shaver was used to abrade and resect a few millimeters of the medial femoral condyle both to improve exposure and serve as bone marrow stimulation for the meniscus repair. After resecting some corresponding medial spine prominence the root repair could be more readily done with the knee in flexion. The mechanical shaver was used and probed to resect just some abnormal frayed tissue at the repair site and abrade tissue only as much necessary to allow for better healing and removal of nonviable tissue. The root repair guide was placed through the anterior medial portal and over the back targeting the radial tear site for root repair. A small pretibial incision was made, root repair guide secured, and the flip cutter appropriately drilled to the root tear, it was flipped to 6 mm and retrograde drilling done for about a 5 mm socket. The knee scorpion was used to then place to many suture tape FiberLink's in the posterior horn aspect adjacent to the tear. These were shuttled through the tibial tunnel with a fiber stick. Provisional reduction confirmed with moderate tension on the sutures. The knee was brought into extension on the operating table, the tibia exposed a centimeter or so from the tunnel site. Sequentially the suture anchor area was prepared using a 2.5 mm drill, punch, and tap. The repair sutures were loaded on the suture anchor, which was deployed with appropriate tension on the repair. Care was taken to ensure the SwiveLock was flush with the tibial cortex to avoid prominence. The repair sutures had excellent fixation strength. The arthroscope was placed back in the knee, the repair had good reduction. There was a nice amount of early bone bleeding from the adjacent medial femoral condyle onto the repair zone. Under direct arthroscopic visualization an 18-gauge needle was passed into the knee from superolateral into the suprapatellar pouch. The knee was copiously irrigated with arthroscopic fluid until there was a clear effluent before being drained of all fluid. The anteromedial and anterolateral portals were closed in 3-0 Monocryl in a buried interrupted fashion. The pretibial incision was deeply closed using 2-0 Monocryl followed by 3-0 Monocryl more superficially. 10 cc of 0.25 bupivacaine with epinephrine was infiltrated about the pretibial incision. Another 10 cc of 0.25% bupivacaine with epinephrine containing 4 mg of morphine was infiltrated into the knee through the previously placed needle. Javi Geei-Strips, and 4 x 4 gauze were applied over the incisions followed by sterile soft roll. The knee was then wrapped gently with an MAYUR comressive bandage. The patient awoke from anesthesia without complication and was transferred to the recovery room in a stable condition.
--- NOTE | 2022-12-18 07:36 | W.PM.DSUDISC ---
Date of service: 12/18/22 Time of Service: 14:55 Discharge Plan Disposition Patient Disposition: Home Condition: Stable Discharge Details Attending Provider: William William Primary Care Provider: Briseida Mckenna Home Meds and New Rx's Prescriptions: New aspirin 81 mg tablet,delayed release (DR/EC) 81 mg PO DAILY 14 Days Qty: 14 0RF naproxen 250 mg tablet 250 - 500 mg PO BID PRN (Reason: Moderate pain) Qty: 40 0RF oxycodone-acetaminophen [Percocet] 5-325 mg tablet 1 - 2 tab PO Q4H MDD 30 mg PRN (Reason: Moderate to severe pain) Qty: 18 0RF Discharge Instructions Additional Instructions: Surgery: Left knee arthroscopy with medial meniscus root repair and intercondylar bone marrow stimulation. Activity: Toe-touch weightbearing with crutches for 6 weeks. Seated/ non-weight bearing flexion 0-90 degrees maximum for 6 weeks. 120 degrees maximum flexion for 8 weeks. Gentle spin/bike after 10 weeks. No weighted deeper flexion (squats, lunges) for 12 weeks. A physical therapy prescription will be sent electronically to start in 2 to 3 weeks. Prescriptions: Aspirin 81 mg take 1 daily to prevent a blood clot for 14 days Naproxen 250 mg take 1-2 every 12 hours with a meal as needed for moderate pain Oxycodone 5 mg take 1-2 every 4-6 hours as needed for severe pain You may use [id number] Tylenol (acetaminophen) as needed for mild pain. These pain medications may be taken all at once or in different combinations as needed. Also, recommend Colace (docusate) as a stool softener as surgery and pain medicine cause constipation. You may try [id number] diphenhydramine (Benadryl) 25-50 mg nightly as a sleep aid Dressings: Leave dressing in place for 3 days. May then remove and leave open to air or cover incisions with Band-Aids. Leave the sticky Steri-Strips in place until they fall off or remove them after you shower. May shower after 5 days. Follow-up: 10-[address] William You may take off the leg compression stockings this evening at home. You may also leave them on a few days longer if you have a history of leg swelling or edema. Let us know right away if you develop any redness, drainage, fevers, chest pain, or trouble breathing. Do not drink alcohol or drive for at least 24 hours after anesthesia. Please call the office during business hours with any questions or concerns. Discharge Orders Discharge Orders: Discharge Order (Routine); Ordered 12/18/22 Ordered By: William William DS: Diagnosis Discharge Diagnosis (1) Acute medial meniscus tear of left knee: Status: Acute
--- NOTE | 2022-12-18 10:05 | W.ANESPRE ---
General Info Date of Service Date Performed: 12/18/22 Height: 5 ft 9 in Weight: 68.946 kg Body Mass Index (BMI): 22.4 Surgical Procedure: Operation Date: 12/18/22 11:55 Proposed Procedure Side Surgeon p Knee Arthroscopy w Medial Meniscus Repair (Root) Left William William MD Meds Allergies and Home Medications Allergies Allergy/AdvReac Type Severity Reaction Status Date / Time No Known Allergies Allergy Unverified 12/18/22 11:40 Home Medication Medication Instructions Recorded Unknown [No Known Home Meds] 08/16/20 Current Visit Medications: Current Medications Generic Name Dose Route Start Last Admin Trade Name Freq PRN Reason Stop Dose Admin Ringer's Solution 1,000 mls @ 30 mls/hr 12/18/22 06:00 IV 12/26/22 23:59 INFUSION SPIKE Cefazolin Sodium/Dextrose 2 gm in 50 mls @ 100 mls/hr 12/18/22 06:00 Ancef Duplex IVPB 12/18/22 23:59 PREOP SPIKE IV Miscellaneous Supplies 1 each 12/18/22 06:00 Iv Access IV 12/26/22 23:59 DIRECTED SPIKE Oxycodone HCl 0 mg 12/18/22 07:33 Oxycodone 5 Mg Tab PO 01/17/23 07:32 Q3H PRN PRN Pain Sodium Chloride 0 ml 12/18/22 06:00 Normal Saline Flush 10 Ml Syr IV 12/26/22 23:59 PRN PRN Sodium Chloride 0 ml 12/18/22 06:00 Normal Saline 10 Ml Vial IJ 12/26/22 23:59 DIRECTED PRN Sterile Water 0 ml 12/18/22 06:00 Water,Injection,Sterile 10 Ml Vial IJ 12/26/22 23:59 DIRECTED PRN PFSH Active Problems Active Problems: Problem Status Onset Code Acute medial meniscus tear of left knee S83.242A Left knee pain M25.562 Left leg pain M79.605 Hyperlipidemia E78.5 Medical History Medical History COVID-19 virus infection (~06/2021) Hyperthyroidism during (~2013) Migraine headache with aura Uterine fibroid S/p removal 2019 Surgical History Surgical History H/O laparoscopy (11/14/19) Laproscopic removal of large complex uterine fibroid S/P right knee arthroscopy (08/29/16) Right knee arthroscopic medial chondroplasty with resection of lateral plica with Dr. Omer Status post bilateral salpingectomy (11/14/19) Tobacco Smoking/Tobacco Use Status: Never Passive smoking exposure: No Second hand exposure: No Alcohol Alcohol Intake: current Alcohol intake frequency: a few times a week Alcohol type: beer Substance Use Substance use: Never Substance use type: does not use Prental History History 2 Para 2 Hx # Term Pregnancies Multiple births Hx # Pregnancies Ectopic pregnancies AB induced Hx Number of Living Children 2 AB spontaneous Vital Signs and Lab Results Lab Results Blood Type / Crossmatch: No Data to Display Complete Blood Count: No Data to Display Complete Metabolic Panel: No Data to Display Liver Function Panel: No Data to Display Coagulation Panel: No Data to Display Cardiac Panel: No Data to Display Arterial Blood Gas: No Data to Display Venous Blood Gas: No Data to Display Pancreas Panel: No Data to Display Thyroid Panel: No Data to Display Infectious Disease: No Data to Display Blood Cultures: No Data to Display Toxicology Panel: No Data to Display Panel: No Data to Display Anesthesia Assessment and Plan Anesthesia History Personal History: No History of Anesthesia Complications Family History: No Family History of Anesthesia Complications Exercise Tolerance Exercise Tolerance: Metabolic Equivalents>4 Pertinent Negatives Pertinent Negatives: No Symptoms of GERD, No Major Cardiovascular Symptoms or Complaints, No Major Pulmonary Symptoms or Complaints and No History of CVA/TIA Cardiac & Pulmonary Exam Cardiac Exam: Normal S1/S2 Heart Sounds Pulmonary Exam: Clear Bilateral Breath Sounds Implantable Cardiac Device Does patient have a Pacemaker or an ICD?: No Airway Exam Known Difficult Airway: No Mallampati Class: 1 Mouth Opening: Normal (> 3cm) Thyromental Distance: Greater than 3 cm Neck Range of Motion: Full ROM Neck Circumference: Normal Teeth Condition: Normal Dentition ASA Classification ASA Score: ASA 2 Emergency Case?: No NPO Status NPO Status: NPO Clears >2 hours, Solids >8 hours Status Status: Negative HCG Anesthesia Plan Resuscitation Status: Full Code Anesthesia Technique: General Anesthesia Airway Planned: LMA Monitors Used: Standard Monitors
[2022-12-18] MEDS: Lactated Ringers 1,000 ML 30 ML IV (11:35)
[2022-12-18] MEDS: ceFAZolin 2 GM/50 ML BAG IVPB (12:33)
[2022-12-18] MEDS: EPINEPHrine 30 MG/30 ML VIAL (14:38)
[2022-12-18] MEDS: MORPHine 4 MG/ML SYR (14:38)
[2022-12-18] MEDS: fentaNYL 100 MCG/2 ML VIAL IVP (14:59)
--- NOTE | 2022-12-18 18:00 | W.ANESPOSTOP ---
Postoperative Evaluation Date, Time and Location Date Performed: 12/18/22 Time Performed: 15:09 Patient Location: PACU Vital Signs Most Recent Imported Vital Signs: Most Recent Vital Signs Temp Pulse Resp BP Pulse Ox 36.3 C L 66 18 105/68 100 12/18/22 15:50 12/18/22 15:50 12/18/22 15:50 12/18/22 15:50 12/18/22 15:50 Pain Score Most Recent Pain Score: Most Recent Pain Score Pain Level 3 12/18/22 15:50 Assessment Mental Status: Awake (Alert & Oriented to Patient Baseline) Airway and Respiratory Function: Patent airway with normal (patient baseline) respiratory exam Cardiovascular Function: Hemodynamically Stable Hydration Status: Adequately Hydrated Nausea & Vomiting: No Nausea or Vomiting Pain: Pain is tolerable per patient Peripheral Nerve Block: Patient did not receive a nerve block
== END 2022-12-18 16:20 | disposition home or self-care (01) ==
PROVIDERS: PCP Nurse Practitioner Family; Visit Provider Student in an Organized Health Care Education/Training Program
PROC: (CPT 29882; principal; 2022-12-18 11:45)
DX: M23.232 Derangement of other medial meniscus due to old tear or injury, left knee (principal); M23.222 Derangement of posterior horn of medial meniscus due to old tear or injury, left knee
CPT/HCPCS: 29882; 29879; 81025; J0131; J0690; J1100; J1885; J2001; J2250; J2270; J2405; J2704; J3010

== ENCOUNTER 2024-04-08 01:01 | Outpatient (CLI) | payer BC, SELFPAY ==
--- NOTE | 2024-04-08 08:00 | DI.MAMMO_ITS ---
Exam(s) MAMMO SCREENING EXAM: MAMMO SCREENING CLINICAL HISTORY: screening,z12.39. TECHNIQUE: Bilateral full field digital CC and MLO mammographic images were obtained with 3D tomosyn thesis and utilizing computer aided detection (CAD). COMPARISON: Prior mammograms were reviewed. FINDINGS: There has been no significant change in the appearance and distribution of the fibroglandular tissue. There are no CAD designations. There are no new spiculated masses nor malignant appearing microcalcification groups. There is no significant architectural distortion nor skin thickening-retraction. IMPRESSION: No radiographic evidence of malignancy. BI-RADS Category 1 - Negative Breast Density - Category C - Heterogeneously dense Breast density Category C or D implies that the patient has dense breast tissue. Dense breast tissue can make it harder to find cancer on a mammogram. Dense breast tissue is also associated with an incr eased risk of breast cancer. This information about the result of the mammogram report was provided to the patient to raise their awareness. Use this report when you speak with the patient about their risks for breast cancer, which includes their family history. At that time, you may recommend additional screening tests (Ultrasoun d or MRI) as these tests may add significant information. A negative radiographic report should not delay biopsy if a dominant or clinically suspicious mass is present. Up to ten percent of cancers are not identified on mammography. A negative report may reinforce clinical impression. Adenosis and dense breasts may obscure an underlying neoplasm. False positive reports average 6 to 10%. Patient will receive a letter notifying them of these results.
== END 2024-04-08 01:21 ==
LOC: DI 01:01
PROVIDERS: PCP Nurse Practitioner Family; Visit Provider Nurse Practitioner Family
DX: Z12.31 Encounter for screening mammogram for malignant neoplasm of breast (principal)
CPT/HCPCS: 77063; 77067

== ENCOUNTER 2024-07-21 03:48 | Outpatient (CLI) | payer OTHER, SELFPAY ==
[2024-07-21 09:21] LABS: Anion Gap 8.2 mmol/L (3-11); BUN 14 mg/dL (7-18); CO2 24.8 mmol/L (21.0-32.0); Calcium 9.1 mg/dL (8.5-10.1); Calculated LDL 114 mg/dL (<100); Chloride 104 mmol/L (98-107); Cholesterol 201 mg/dL (<200); Estimated GFR 71.69 (mL/min/1.73m2); Glucose 91 mg/dL (74-106); HDL Cholesterol 79 mg/dL (40-60); Potassium 4.2 mmol/L (3.5-5.1); Sodium 137 mmol/L (136-145); TSH (W/Ref FT4) 8.21 uIU/mL (0.36-3.74); Triglyceride 41 mg/dL (<150)
[2024-07-21 09:52] LABS: FREE T4 0.88 ng/dL (0.76-1.46)
== END 2024-07-21 03:49 | disposition home or self-care (01) ==
LOC: LBO 03:49
PROVIDERS: PCP Nurse Practitioner Family; Visit Provider Nurse Practitioner Family
DX: Z00.00 Encounter for general adult medical examination without abnormal findings (principal); E78.5 Hyperlipidemia, unspecified
CPT/HCPCS: 36415; 80048; 80061; 84439; 84443

== ENCOUNTER 2024-09-27 02:06 | Outpatient (CLI) | payer OTHER, SELFPAY ==
[2024-09-27 10:21] LABS: TSH (W/Ref FT4) 8.85 uIU/mL (0.36-3.74)
[2024-09-27 10:39] LABS: FREE T4 0.92 ng/dL (0.76-1.46)
== END 2024-09-27 02:07 | disposition home or self-care (01) ==
LOC: LBO 02:06
PROVIDERS: PCP Nurse Practitioner Family; Visit Provider Nurse Practitioner Family
DX: E05.80 Other thyrotoxicosis without thyrotoxic crisis or storm
CPT/HCPCS: 36415; 84439; 84443

== ENCOUNTER 2024-12-27 12:52 | Outpatient (CLI) | payer OTHER, SELFPAY ==
[2024-12-27 10:54] LABS: TSH (W/Ref FT4) 7.67 uIU/mL (0.36-3.74)
== END 2024-12-27 12:53 | disposition home or self-care (01) ==
LOC: LBO 12:52
PROVIDERS: PCP Nurse Practitioner Family; Visit Provider Nurse Practitioner Family
DX: E05.80 Other thyrotoxicosis without thyrotoxic crisis or storm; Z79.899 Other long term (current) drug therapy
CPT/HCPCS: 36415; 84439; 84443

== ENCOUNTER 2025-03-24 03:59 | Outpatient (CLI) | payer OTHER, SELFPAY ==
[2025-03-24 08:56] LABS: TSH (W/Ref FT4) 7.01 uIU/mL (0.36-3.74)
== END 2025-03-24 04:00 | disposition home or self-care (01) ==
LOC: LBO 03:59
PROVIDERS: PCP Nurse Practitioner Family; Visit Provider Nurse Practitioner Family
DX: O99.280 Endocrine, nutritional and metabolic diseases complicating pregnancy, unspecified trimester (principal); E05.80 Other thyrotoxicosis without thyrotoxic crisis or storm
CPT/HCPCS: 36415; 84439; 84443

== ENCOUNTER 2025-04-19 01:31 | Outpatient (CLI) | payer OTHER, SELFPAY ==
--- NOTE | 2025-04-19 08:30 | DI.MAMMO_ITS ---
Exam(s) MAMMO SCREENING EXAM: MAMMO SCREENING CLINICAL HISTORY: screening,Z12.39 TECHNIQUE: Bilateral full field digital CC and MLO mammographic images were obtained with 3D tomosynthesis and utilizing computer aided detection (CAD). COMPARISON: Comparison is made with prior examinations. FINDINGS: Masses/Architectural Distortion: No suspicious masses or areas of architectural distortion are present. Microcalcifications: No suspicious pleomorphic-type are seen. Skin Thickening/Nipple Retraction: None. IMPRESSION: 1. No significant interval change with no specific features of malignancy noted. 2. Unless there is more urgent need, screening mammography is recommended, as per [place] [employer] guidelines. BI-RADS Category 1 - Negative Breast Density - Category C - The breast are heterogeneously dense, which may obscure small masses. Breast density Category C or D implies that the patient has dense breast tissue. Dense breast tissue can make it harder to find cancer on a mammogram. Dense breast tissue is also associated with an increased risk of breast cancer. This information about the result of the mammogram report was provided to the patient to raise their awareness. Use this report when you speak with the patient about their risks for breast cancer, which includes their family history. At that time, you may recommend additional screening tests (Ultrasound or MRI) as these tests may add significant information. A negative radiographic report should not delay biopsy if a dominant or clinically suspicious mass is present. Up to ten percent of cancers are not identified on mammography. A negative report may reinforce clinical impression. Adenosis and dense breasts may obscure an underlying neoplasm. False positive reports average 6 to 10%. Patient will receive a letter notifying them of these results.
== END 2025-04-19 01:51 ==
LOC: DI 01:31
PROVIDERS: PCP Nurse Practitioner Family; Visit Provider Nurse Practitioner Family
DX: Z12.31 Encounter for screening mammogram for malignant neoplasm of breast (principal)
CPT/HCPCS: 77063; 77067

== ENCOUNTER 2025-05-31 01:34 | Outpatient (CLI) | payer OTHER, SELFPAY ==
[2025-05-31 16:41] LABS: Abs Immature Grans 0.01 10^3/uL (0.0-0.06); HCT 36.3 % (36.0-46.0); HGB 12.1 g/dL (11.2-15.7); Immature Grans % 0.2 %; MCH 31.8 pg (27.0-33.0); MCHC 33.3 % (32.0-36.0); MCV 95 fL (80-95); MPV 10.3 fL (8.0-11.0); Platelet Count 227 10^3/uL (130-400); RBC 3.81 10^6/uL (3.93-5.22); RDW 12.3 % (11.7-14.6); RDW-SD 43.5 fL; WBC 5.51 10^3/uL (4.4-10.8)
[2025-05-31 17:49] LABS: ALT 18 U/L (10-49); AST 23 U/L (<34); Albumin 4.4 g/dL (3.2-5.0); Alkaline Phosphatase 51 U/L (46-116); Anion Gap 8.6 mmol/L (3-11); BUN 16 mg/dL (9-23); Bilirubin, Total 0.60 mg/dL (0.2-1.2); CO2 24.4 mmol/L (20.0-31.0); Calcium 9.6 mg/dL (8.3-10.6); Chloride 104 mmol/L (98-107); Ferritin 8 ng/mL (7-271); Glucose 108 mg/dL (74-106); Potassium 4.3 mmol/L (3.5-5.1); Sodium 137 mmol/L (136-145); TSH (W/Ref FT4) 4.28 uIU/mL (0.55-4.78); Total Protein 7.2 g/dL (5.7-8.2)
[2025-06-01 19:06] LABS: Hepatitis C Ab w Rflx HCV PCR Negative (Negative)
[2025-06-01 19:09] LABS: HBs Antibody, Quant >1000.0 mIU/mL (See Note); Hepatitis B Surface Antigen Negative (Negative)
[2025-06-01 19:12] LABS: HIV-1/2 Ag & Ab Screen Negative (Negative)
== END 2025-05-31 01:35 | disposition home or self-care (01) ==
LOC: LBO 01:34
PROVIDERS: PCP Nurse Practitioner Family; Visit Provider Nurse Practitioner Family
DX: E03.9 Hypothyroidism, unspecified (principal); R53.83 Other fatigue; E78.5 Hyperlipidemia, unspecified; Z11.4 Encounter for screening for human immunodeficiency virus [HIV]; Z11.59 Encounter for screening for other viral diseases
CPT/HCPCS: 36415; 80053; 86376; 86704; 86706; 86803; 87340; 87389; 82728; 84443; 85025